=== PATIENT | female | born 1930 | race Caucasian/White ===

== ENCOUNTER 2016-12-01 09:48 | Inpatient (IN) | payer MEDICARE, OTHER ==
[~2016-12-01] VITALS: Ht 160 cm; Wt 78.0 kg
[2016-12-01] MEDS ORDERED: ATOR10TA PO (10:24)
[2016-12-01] MEDS ORDERED: ASPI81TA2 PO (10:24)
[2016-12-01] MEDS ORDERED: CALC500T13 PO (10:24)
[2016-12-01] MEDS ORDERED: TRIA1CAP2 PO (10:24)
[2016-12-01] MEDS ORDERED: LEVO50TA8 PO (10:24)
[2016-12-01 10:40] LABS: BASOPHILS # (AUTO) 0.1 /CMM (0.0-0.2); BASOPHILS % (AUTO) 1.8 % (0.0-2.0); DIFF TOTAL % 100 %; EOSINOPHILS # (AUTO) 0.1 /CMM (0.0-0.7); EOSINOPHILS % (AUTO) 1.5 % (0.0-6.0); HEMATOCRIT 41 % (33-45); HEMOGLOBIN 13.8 g/dL (11.5-14.8); LYMPHOCYTES # (AUTO) 1.9 /CMM (0.8-4.8); LYMPHOCYTES % (AUTO) 36.3 % (20.0-44.0); MEAN CORPUSCULAR HEMOGLOBIN 30 PG (26.0-33.0); MEAN CORPUSCULAR HGB CONC 33 g/dl (31.0-36.0); MEAN CORPUSCULAR VOLUME 89 fL (82-100); MONOCYTES # (AUTO) 0.5 /CMM (0.1-1.30); MONOCYTES % (AUTO) 10.1 % (2.0-12.0); NEUTROPHILS # (AUTO) 2.6 /CMM (1.8-8.9); NEUTROPHILS % (AUTO) 50.3 % (43.0-81.0); PLATELET COUNT (AUTO) 227 /CMM (150-450); RED BLOOD CELL COUNT(AUTO) 4.65 MIL/uL (4.0-5.2); WHITE BLOOD COUNT (AUTO) 5.2 K/uL (4.3-11.0)
[2016-12-01 10:50] LABS: CALCIUM, SERUM 9.3 mg/dL (8.5-10.1); CREATININE 1.2 mg/dL (0.6-1.3); POTASSIUM 3.7 mmol/L (3.5-5.1)
[2016-12-01 10:55] LABS: ALBUMIN 3.6 g/dL (3.4-5.0); BILIRUBIN,DIRECT 0.1 mg/dL (0.0-0.2); BILIRUBIN,TOTAL 0.6 mg/dL (0.2-1.0); INDIRECT BILIRUBIN 0.5 mg/dL (0.0-1.1); TOTAL PROTEIN, SERUM 7.6 g/dL (6.4-8.2)
[2016-12-01 10:58] LABS: TROPONIN I 0.026 ng/mL (0.00-0.056)
[2016-12-01 11:10] LABS: KETONES,URINE Negative (NEGATIVE); LEUKOCYTE ESTERASE ,URINE Trace (NEGATIVE)
[2016-12-01 11:12] LABS: ADD UA MICROSCOPIC YES
[2016-12-01 11:13] LABS: ADD URINE CULTURE NO
[2016-12-01 12:27] LABS: THYROID STIMULATING HORMONE 0.551 uIU/mL (0.358-3.74)
[2016-12-01] MEDS ORDERED: IV NS 0.9% 1,000 ML ONE (12:44)
[2016-12-01] MEDS ORDERED: IV SET PRIMARY PUMP SET 1 EA INFUS.SET MC ONE ×2 (12:44→14:05)
[2016-12-01] MEDS: IV NS 0.9% 1,000 ML IV PRN ×3 (12:55→14:41)
[2016-12-01 13:57] VITALS: BP 124/75
[2016-12-01 14:00] VITALS: BP 124/75
[2016-12-01] MEDS ORDERED: ZOLPIDEM TARTRATE 5 MG TABLET PO PRN (14:00)
[2016-12-01] MEDS ORDERED: HYDROCODONE/APAP 5/325MG 1 EACH TABLET PO PRN (14:00)
[2016-12-01] MEDS ORDERED: MAG HYDROX/AL HYDROX/SIMETH 30 ML UDC PO PRN (14:00)
[2016-12-01] MEDS ORDERED: MAGNESIUM HYDROXIDE 30 ML UDC PO PRN (14:00)
[2016-12-01] MEDS ORDERED: Z GUARD REMEDY 2 OZ OINT TP PRN (14:00)
[2016-12-01] MEDS ORDERED: ONDANSETRON HCL/PF 4 MG/2 ML VIAL IVP PRN (14:00)
[2016-12-01] MEDS ORDERED: ACETAMINOPHEN 325 MG TABLET PO PRN (14:00)
[2016-12-01] MEDS: PANTOPRAZOLE 40 MG TABLET.DR PO SCH (14:08)
[2016-12-01] MEDS: AMLODIPINE BESYLATE 10 MG TABLET PO SCH (14:09)
[2016-12-01 16:00] VITALS: BP 113/68
[2016-12-01 16:54] LABS: IRON, SERUM 132 ug/dl (50-175); PERCENT SATURATION 34 % (14-33); TOTAL IRON BINDING CAPACITY 387 ug/dl (250-450)
[2016-12-01] MEDS: CALCIUM CARBONATE 500 MG TAB.CHEW PO SCH (18:34)
[2016-12-01 20:00] VITALS: BP 106/55
[2016-12-01] MEDS: ATORVASTATIN 10 MG TABLET PO SCH (21:01)
[2016-12-01 22:00] VITALS: BP 106/55
[2016-12-02] VITALS (7 sets, daily range): BP systolic 100–131; BP diastolic 42–79
[2016-12-02] MEDS: IV NS 0.9% 1,000 ML IV PRN ×2 (01:47→11:14)
[2016-12-02] MEDS: PANTOPRAZOLE 40 MG TABLET.DR PO SCH (06:38)
[2016-12-02] MEDS: LEVOTHYROXINE SODIUM 50 MCG TABLET PO SCH (06:38)
[2016-12-02 06:57] LABS: BASOPHILS % (AUTO) 0.7 % (0.0-2.0); DIFF TOTAL % 100 %; EOSINOPHILS # (AUTO) 0.1 /CMM (0.0-0.7); EOSINOPHILS % (AUTO) 2.1 % (0.0-6.0); HEMATOCRIT 41 % (33-45); HEMOGLOBIN 13.4 g/dL (11.5-14.8); LYMPHOCYTES # (AUTO) 1.9 /CMM (0.8-4.8); LYMPHOCYTES % (AUTO) 36.3 % (20.0-44.0); MEAN CORPUSCULAR HEMOGLOBIN 29 PG (26.0-33.0); MEAN CORPUSCULAR HGB CONC 33 g/dl (31.0-36.0); MEAN CORPUSCULAR VOLUME 90 fL (82-100); MONOCYTES # (AUTO) 0.4 /CMM (0.1-1.30); MONOCYTES % (AUTO) 8.2 % (2.0-12.0); NEUTROPHILS # (AUTO) 2.8 /CMM (1.8-8.9); NEUTROPHILS % (AUTO) 52.7 % (43.0-81.0); PLATELET COUNT (AUTO) 239 /CMM (150-450); RED BLOOD CELL COUNT(AUTO) 4.57 MIL/uL (4.0-5.2); WHITE BLOOD COUNT (AUTO) 5.4 K/uL (4.3-11.0)
[2016-12-02 07:05] LABS: TROPONIN I 0.021 ng/mL (0.00-0.056)
[2016-12-02 07:15] LABS: URIC ACID 5.6 mg/dL (2.6-7.2)
[2016-12-02 07:17] LABS: ALBUMIN 3.3 g/dL (3.4-5.0); BILIRUBIN,TOTAL 0.6 mg/dL (0.2-1.0); CALCIUM, SERUM 8.6 mg/dL (8.5-10.1); POTASSIUM 3.6 mmol/L (3.5-5.1); TOTAL PROTEIN, SERUM 7.1 g/dL (6.4-8.2)
[2016-12-02] MEDS: AMLODIPINE BESYLATE 10 MG TABLET PO SCH (08:36)
[2016-12-02] MEDS: TRIAMTERENE/HYDROCHLOROTHIAZID (37.5/25MG) 1 UDCAP PO SCH (08:36)
[2016-12-02] MEDS: CALCIUM CARBONATE 500 MG TAB.CHEW PO SCH ×3 (08:36→17:00)
[2016-12-02] MEDS: ASPIRIN 81 MG TAB.CHEW PO SCH (08:36)
[2016-12-02 10:11] LABS: ERYTHROCYTE SEDIMENTATION RATE 21 MM/HR (0-30)
[2016-12-02] MEDS: ATORVASTATIN 10 MG TABLET PO SCH (22:30)
[2016-12-03] VITALS (8 sets, daily range): BP systolic 96–137; BP diastolic 52–77
[2016-12-03] MEDS: LEVOTHYROXINE SODIUM 50 MCG TABLET PO SCH (07:30)
[2016-12-03] MEDS: PANTOPRAZOLE 40 MG TABLET.DR PO SCH (07:30)
[2016-12-03 07:53] LABS: BASOPHILS % (AUTO) 0.6 % (0.0-2.0); DIFF TOTAL % 100 %; EOSINOPHILS # (AUTO) 0.1 /CMM (0.0-0.7); EOSINOPHILS % (AUTO) 1.5 % (0.0-6.0); HEMATOCRIT 39 % (33-45); LYMPHOCYTES # (AUTO) 1.7 /CMM (0.8-4.8); LYMPHOCYTES % (AUTO) 30.3 % (20.0-44.0); MEAN CORPUSCULAR HEMOGLOBIN 30 PG (26.0-33.0); MEAN CORPUSCULAR HGB CONC 33 g/dl (31.0-36.0); MEAN CORPUSCULAR VOLUME 89 fL (82-100); MONOCYTES # (AUTO) 0.4 /CMM (0.1-1.30); MONOCYTES % (AUTO) 7.3 % (2.0-12.0); NEUTROPHILS # (AUTO) 3.4 /CMM (1.8-8.9); NEUTROPHILS % (AUTO) 60.3 % (43.0-81.0); PLATELET COUNT (AUTO) 223 /CMM (150-450); RED BLOOD CELL COUNT(AUTO) 4.36 MIL/uL (4.0-5.2); WHITE BLOOD COUNT (AUTO) 5.7 K/uL (4.3-11.0)
[2016-12-03] MEDS: ASPIRIN 81 MG TAB.CHEW PO SCH (09:00)
[2016-12-03] MEDS: CALCIUM CARBONATE 500 MG TAB.CHEW PO SCH ×3 (09:00→17:33)
[2016-12-03] MEDS: TRIAMTERENE/HYDROCHLOROTHIAZID (37.5/25MG) 1 UDCAP PO SCH (09:00)
[2016-12-03] MEDS: AMLODIPINE BESYLATE 10 MG TABLET PO SCH (09:00)
[2016-12-03 09:10] LABS: ALBUMIN 3.2 g/dL (3.4-5.0); BILIRUBIN,TOTAL 0.5 mg/dL (0.2-1.0); CALCIUM, SERUM 8.7 mg/dL (8.5-10.1); CREATININE 1.1 mg/dL (0.6-1.3); PHOSPHORUS 2.7 mg/dL (2.5-4.9); POTASSIUM 3.3 mmol/L (3.5-5.1); TOTAL PROTEIN, SERUM 6.9 g/dL (6.4-8.2)
[2016-12-03] MEDS ORDERED: FENTANYL PF 100MCG/2ML AMPUL ONE (11:46)
[2016-12-03] MEDS ORDERED: LIDOCAINE HCL/PF 1% 30 ML SDV ONE (12:06)
[2016-12-03] MEDS ORDERED: IOHEXOL 50 ML IV ONE (12:06)
[2016-12-03] MEDS ORDERED: METOCLOPRAMIDE HCL 10 MG/2 ML VIAL ONE (13:24)
[2016-12-03] MEDS ORDERED: ERGOCALCIFEROL (VITAMIN D 2) 50,000 UNIT CAPSULE PO SCH (13:30)
[2016-12-03] MEDS ORDERED: POTASSIUM CHLORIDE 20 MEQ TAB.PRT.SR PO SCH (18:00)
[2016-12-03] MEDS: ATORVASTATIN 10 MG TABLET PO SCH (21:34)
[2016-12-04] VITALS: BP 111/45
[2016-12-04] MEDS: IV NS 0.9% 1,000 ML IV PRN (02:33)
[2016-12-04 07:55] LABS: CALCIUM, SERUM 8.4 mg/dL (8.5-10.1); POTASSIUM 3.5 mmol/L (3.5-5.1)
[2016-12-04 08:00] VITALS: BP 104/55
[2016-12-04] MEDS: PANTOPRAZOLE 40 MG TABLET.DR PO SCH (08:32)
[2016-12-04] MEDS: ASPIRIN 81 MG TAB.CHEW PO SCH (08:32)
[2016-12-04] MEDS: LEVOTHYROXINE SODIUM 50 MCG TABLET PO SCH (08:32)
[2016-12-04] MEDS: CALCIUM CARBONATE 500 MG TAB.CHEW PO SCH (08:32)
[2016-12-04] MEDS: AMLODIPINE BESYLATE 10 MG TABLET PO SCH (08:32)
[2016-12-04 08:33] VITALS: BP 104/55
[2016-12-04] MEDS: TRIAMTERENE/HYDROCHLOROTHIAZID (37.5/25MG) 1 UDCAP PO SCH (08:33)
== END 2016-12-04 12:54 | disposition home or self-care (01) | DRG 243 ==
LOC: ER 09:50 → TELE 13:03 → MED 12-04 10:53
PROVIDERS: ADMIT Internal Medicine; ATTEND Internal Medicine
PROC: 02HK3JZ Insertion of Pacemaker Lead into Right Ventricle, Percutaneous Approach (ICD-10-PCS; 2016-12-03)
PROC: 05H633Z Insertion of Infusion Device into Left Subclavian Vein, Percutaneous Approach (ICD-10-PCS; 2016-12-03)
PROC: 0JH605Z Insertion of Pacemaker, Single Chamber Rate Responsive into Chest Subcutaneous Tissue and Fascia, Open Approach (ICD-10-PCS; principal; 2016-12-03 12:45)
DX: I49.5 Sick sinus syndrome (principal); I44.2 Atrioventricular block, complete; I48.2 Chronic atrial fibrillation; G89.29 Other chronic pain; E03.9 Hypothyroidism, unspecified; K21.9 Gastro-esophageal reflux disease without esophagitis; M19.90 Unspecified osteoarthritis, unspecified site; Z96.643 Presence of artificial hip joint, bilateral; I10 Essential (primary) hypertension; D64.9 Anemia, unspecified; E55.9 Vitamin D deficiency, unspecified
CPT/HCPCS: 36415; 71010-TC; 80048-TC; 80053-TC; 80061-TC; 80076-TC; 81000-TC; 82272-TC; 82306; 82728-TC; 82746; 83540-TC; 83735-TC; 84100-TC; 84439-TC; 84443-TC; 84484-TC; 84550-TC; 85025-TC; 85652-TC; 87081-TC; 87086-TC; 93307-TC; A4606; J2765; J3010; J3490; J7030; Q9967; Z7610

== ENCOUNTER 2017-03-25 00:39 | Inpatient (IN) | payer MEDICARE, OTHER ==
[~2017-03-25] VITALS: Ht 157.5 cm; Wt 79.4 kg
[~2017-03-25 00:39] MED LIST: ATOR10TA PO; CALC500T13 PO; LEVO50TA8 PO; TRIA1CAP2 PO
[2017-03-25] MEDS ORDERED: METOPROLOL TARTRATE INJ 5 MG/5 ML AMPUL ONE (00:58)
[2017-03-25] MEDS ORDERED: AMIODARONE 150 MG/3 ML VIAL IV ONE ×2 (00:58→01:02)
[2017-03-25] MEDS ORDERED: IV D5W 500 ML IV ONE (00:59)
[2017-03-25] MEDS ORDERED: IV D5W 100 ML IV ONE (00:59)
[2017-03-25] MEDS ORDERED: IV SET PRIMARY PUMP SET 1 EA INFUS.SET MC ONE (00:59)
[2017-03-25] MEDS ORDERED: AMIODARONE 900 MG in IV D5W 500 ML IV ONE (01:00)
[2017-03-25] MEDS ORDERED: AMIODARONE 150 MG in IV D5W 100 ML IV ONE (01:00)
[2017-03-25] MEDS ORDERED: METOPROLOL TARTRATE INJ 5 MG/5 ML AMPUL IV ONE (01:00)
[2017-03-25 01:13] LABS: BASOPHILS # (AUTO) 0.1 /CMM (0.0-0.2); BASOPHILS % (AUTO) 1.2 % (0.0-2.0); EOSINOPHILS # (AUTO) 0.1 /CMM (0.0-0.7); EOSINOPHILS % (AUTO) 1.6 % (0.0-6.0); HEMATOCRIT 42 % (33-45); HEMOGLOBIN 13.8 g/dL (11.5-14.8); LYMPHOCYTES # (AUTO) 2.7 /CMM (0.8-4.8); LYMPHOCYTES % (AUTO) 31.2 % (20.0-44.0); MEAN CORPUSCULAR HEMOGLOBIN 29 PG (26.0-33.0); MEAN CORPUSCULAR HGB CONC 33 g/dl (31.0-36.0); MEAN CORPUSCULAR VOLUME 89 fL (82-100); MONOCYTES # (AUTO) 0.7 /CMM (0.1-1.30); MONOCYTES % (AUTO) 8.6 % (2.0-12.0); NEUTROPHILS % (AUTO) 57.4 % (43.0-81.0); PLATELET COUNT (AUTO) 253 /CMM (150-450); RDW COEFFICIENT OF VARIATION 13.7 (11.5-15.0); RED BLOOD CELL COUNT(AUTO) 4.73 MIL/uL (4.0-5.2); WHITE BLOOD COUNT (AUTO) 8.6 K/uL (4.3-11.0)
[2017-03-25 01:24] LABS: CALCIUM, SERUM 8.7 mg/dL (8.5-10.1); CREATININE 1.1 mg/dL (0.6-1.3); POTASSIUM 3.4 mmol/L (3.5-5.1)
[2017-03-25 01:32] LABS: TROPONIN I 0.037 ng/mL (0.00-0.056)
[2017-03-25 01:36] LABS: ALBUMIN 3.7 g/dL (3.4-5.0); BILIRUBIN,DIRECT 0.1 mg/dL (0.0-0.2); BILIRUBIN,TOTAL 0.2 mg/dL (0.2-1.0); TOTAL PROTEIN, SERUM 7.8 g/dL (6.4-8.2)
--- NOTE | 2017-03-25 01:37 | NUR ---
DR. THOMPSON IS AT THE BEDSIDE RE-EVALUATING THE PT.
--- NOTE | 2017-03-25 01:40 | NUR ---
AMIODARONE DRIP STARTED.
[2017-03-25 01:41] LABS: D-DIMER 0.4 mg/L(FEU (0.17-0.50); PROTHROMBIN TIME 10.7 SECS (9.5-12.7)
--- NOTE | 2017-03-25 02:24 | NUR ---
REPORT GIVEN TO ALLEY PANDEY
[2017-03-25 02:35] VITALS: BP 145/85
--- NOTE | 2017-03-25 02:35 | NUR ---
JAYSON RN INITIAL NOTE RECEIVED PT VIA CHANTEL FROM ER. PT A/O X3 AND ABLE TO MAKE NEEDS KNOWN. COUSIN AT BEDSIDE. HEART AND LUNG SOUNDS AUSCULTATED. ON 2L OF O2 VIA NC AND SATING WELL. IV RAC #18 PATENT, CLEAN AND FLUSHING WELL. ON AMIODARONE DRIP AND WELL TOLERATED. BED IN LOWEST POSITION AND BRAKES ON. CALL LIGHT WITHIN EASY REACH AT ALL TIMES. WILL CONTINUE TO MONITOR.
[2017-03-25 04:00] VITALS: BP 129/67
--- NOTE | 2017-03-25 07:00 | NUR ---
JAYSON RN CLOSING NOTE PT REMAINED STABLE DURING SHIFT. NO ACUTE DISTRESS NOTED AT THIS TIME. FLUIDS WELL TOLERATED. CALL LIGHT WITHIN REACH. WILL ENDORSE TO NEXT SHIFT FOR JOHANA.
[2017-03-25 08:00] VITALS: BP 124/70
[2017-03-25] MEDS ORDERED: IV NS 0.9% 1,000 ML IV PRN (10:06)
[2017-03-25] MEDS ORDERED: APIX2.5T PO (10:12)
[2017-03-25] MEDS ORDERED: APIXABAN 5 MG TABLET PO SCH ×2 (10:30)
[2017-03-25] MEDS ORDERED: CALCIUM CARBONATE 500 MG TAB.CHEW PO PRN (10:30)
[2017-03-25 10:49] LABS: THYROID STIMULATING HORMONE 3.866 uIU/mL (0.358-3.74)
[2017-03-25 12:00] VITALS: BP 98/59
[2017-03-25] MEDS: LEVOTHYROXINE SODIUM 50 MCG TABLET PO SCH (12:24)
[2017-03-25] MEDS: POTASSIUM CHLORIDE 20 MEQ TAB.PRT.SR PO SCH ×3 (12:24→14:17)
[2017-03-25] MEDS: METOPROLOL TARTRATE 50 MG TABLET PO SCH ×2 (12:24→21:15)
[2017-03-25] MEDS: DRONEDARONE HYDROCHLORIDE 400 MG TABLET PO SCH ×2 (12:37→16:43)
[2017-03-25] MEDS: IV NS 0.9% 1,000 ML IV PRN ×2 (12:37→21:17)
--- NOTE | 2017-03-25 12:53 | NUR ---
JAYSON Report given to ALLEY Ortiz for continuity of care. vitals remain stable. patient scheduled for cardioversion in am. NPO post MN, IVF started. Amio DC'd per Cardio. Patient in agreement with plan
[2017-03-25 16:00] VITALS: BP_SYST 111; BP_DIAS 56; BP_DIAS 66
[2017-03-25] MEDS: APIXABAN 2.5 MG TABLET PO SCH (16:43)
--- NOTE | 2017-03-25 19:01 | NUR ---
RN CLOSING NOTE PT RESTING IN BED COMFORTABLY. ALL MD ORDERS CARRIED OUT. PT KEPT CLEAN AND DRY. SAFETY PRECAUTIONS IN PLACE AT ALL TIMES. WILL GIVE REPORT TO PM RN FOR JOHANA.
--- NOTE | 2017-03-25 19:30 | NUR ---
LUNCH COOK INITIAL NOTES RECEIVED PATIENT AWAKE, A/OX4, ABLE TO MAKE NEEDS KNOWN. NO RESPIRATORY DISTRESS NOTED, ON ROOM AIR. DENIES PAIN OR DISCOMFORT. SKIN WARM AND DRY TO TOUCH. AMBULATORY, STEADY GAIT. ON TELE MONITOR AFIB CONTROLLED. IVF RUNNING. SIDE RAILS UP AND LOCKED. BED KEPT AT LOWEST POSITION. CALL LIGHT KEPT WITHIN EASY REACH. WILL CONTINUE TO MONITOR.
[2017-03-25 20:00] VITALS: BP 116/71
[2017-03-25] MEDS ORDERED: ATORVASTATIN 10 MG TABLET PO SCH (22:00)
[2017-03-26] VITALS: BP 124/68
--- NOTE | 2017-03-26 00:06 | NUR ---
NEUROSURGEON NOTES INFORMED ROOFING SUPERVISOR MEDEIROS REGARDING PATIENT FEELING ANXIOUS ABOUT MORNING PROCEDURE AND WOULD LIKE MEDICATION TO HELP HER SLEEP. WITH ORDERS FOR ATIVAN 0.5MG X 1 DOSE. NOTED, WILL CONTINUE TO MONITOR.
[2017-03-26] MEDS ORDERED: LORAZEPAM 0.5 MG TABLET ONE (00:09)
[2017-03-26] MEDS ORDERED: LORAZEPAM 0.5 MG TABLET PO ONE (00:30)
[2017-03-26] MEDS ORDERED: ONDANSETRON HCL/PF 4 MG/2 ML VIAL ONE (01:02)
--- NOTE | 2017-03-26 01:05 | NUR ---
PATIENT C/O OF FEELING NAUSEOUS, INFORMED OIL PAINTER MEDEIROS WITH ORDERS FOR ZOFRAN IV 4MG ONE TIME DOSE. THEN OK TO GIVE ATIVAN. WILL CONTINUE TO MONITOR.
[2017-03-26] MEDS ORDERED: ONDANSETRON HCL/PF 4 MG/2 ML VIAL IV ONE (01:30)
[2017-03-26 04:00] VITALS: BP 113/70
[2017-03-26] MEDS: IV NS 0.9% 1,000 ML IV PRN (05:20)
--- NOTE | 2017-03-26 05:48 | NUR ---
COW TENDER NOTES CONTINUITY OF CARE ENDORSED TO ICU NURSE BARBIE. PATIENT AWAKE, STATES SHE FEELS BETTER GATHERING HER BELONGINGS.
[2017-03-26 06:00] VITALS: BP 116/73
--- NOTE | 2017-03-26 06:06 | NUR ---
PROCESS CONTROL OPERATOR CLOSING NOTES PATIENT TRANSFERRED TO ICU VIA WHEEL CHAIR IN STABLE CONDITION. NO RESPIRATORY DISTRESS NOTED. ON 2LPMO2 VIA NC. SKIN WARM AND DRY TO TOUCH. ALL BELONGINGS WITH PATIENT.
--- NOTE | 2017-03-26 06:15 | NUR ---
received pt from Tele, a/o x4, follows commands, A fib controlled, on 2L 02 sat well, lungs clear, no edema, NPO, v/s stable, no pain, pt turns and repositions by herself, pt is ready for cardioversion.
[2017-03-26 08:00] VITALS: BP 119/71
[2017-03-26 08:25] LABS: BASOPHILS % (AUTO) 0.5 % (0.0-2.0); EOSINOPHILS # (AUTO) 0.1 /CMM (0.0-0.7); EOSINOPHILS % (AUTO) 0.8 % (0.0-6.0); HEMATOCRIT 37 % (33-45); HEMOGLOBIN 11.9 g/dL (11.5-14.8); LYMPHOCYTES # (AUTO) 1.3 /CMM (0.8-4.8); LYMPHOCYTES % (AUTO) 18.9 % (20.0-44.0); MEAN CORPUSCULAR HEMOGLOBIN 29 PG (26.0-33.0); MEAN CORPUSCULAR HGB CONC 33 g/dl (31.0-36.0); MEAN CORPUSCULAR VOLUME 90 fL (82-100); MONOCYTES # (AUTO) 0.4 /CMM (0.1-1.30); MONOCYTES % (AUTO) 6.6 % (2.0-12.0); NEUTROPHILS # (AUTO) 4.9 /CMM (1.8-8.9); NEUTROPHILS % (AUTO) 73.2 % (43.0-81.0); PLATELET COUNT (AUTO) 188 /CMM (150-450); RDW COEFFICIENT OF VARIATION 13.7 (11.5-15.0); RED BLOOD CELL COUNT(AUTO) 4.06 MIL/uL (4.0-5.2); WHITE BLOOD COUNT (AUTO) 6.6 K/uL (4.3-11.0)
--- NOTE | 2017-03-26 08:30 | NUR ---
EGG BREAKING MACHINE OPERATOR NOTE RECITED PATIENT FROM ICU ,ALERT ORIENTED S\P CARDIOVERSION .PLACED ON TELE MONITOR WITH V PACING HR [address] DONYA TATUM TO GIVE MULTAQ NO SOB NOTED RT HAND HL INTACT ,NON IVF ORDERED, WILL L CONT TO MONITOR CLOSELY ,HAVING BREAKFAST ABLE TO EAT SELF BED IN LOWEST AND LOOKED POSITION ,PLAN OF CARE DISCUSSED WITH PATIENT ,CALL LIGHT WITHIN REACH
[2017-03-26 08:47] LABS: ALBUMIN 2.9 g/dL (3.4-5.0); BILIRUBIN,TOTAL 0.6 mg/dL (0.2-1.0); CALCIUM, SERUM 8.2 mg/dL (8.5-10.1); CREATININE 1.2 mg/dL (0.6-1.3); MAGNESIUM 1.9 mg/dL (1.8-2.4); PHOSPHORUS 3.4 mg/dL (2.5-4.9); POTASSIUM 4.3 mmol/L (3.5-5.1); TOTAL PROTEIN, SERUM 6.1 g/dL (6.4-8.2)
[2017-03-26] MEDS: METOPROLOL TARTRATE 50 MG TABLET PO SCH (09:41)
[2017-03-26] MEDS: LEVOTHYROXINE SODIUM 50 MCG TABLET PO SCH (09:41)
[2017-03-26] MEDS: DRONEDARONE HYDROCHLORIDE 400 MG TABLET PO SCH (09:42)
[2017-03-26] MEDS: APIXABAN 2.5 MG TABLET PO SCH (09:57)
--- NOTE | 2017-03-26 11:20 | NUR ---
PASSENGER LOCOMOTIVE ENGINEER NOTE PER DR DANELLE TATUM TO DISCHARGE, SPOKE WITH DR CLARITA TATUM TO GO HOME , PX GIVEN AND FAXED TO [facility]
[2017-03-26 12:00] VITALS: BP 107/60
--- NOTE | 2017-03-26 12:38 | NUR ---
CHIEF LIBRARIAN WORK WITH BLIND NOTE CALLED T O PT X3 STILL NOT COME YET
--- NOTE | 2017-03-26 13:38 | NUR ---
DESKTOP MANAGER NOTE PT AT BEDSIDE MOHIT AYN,CALLED TO CHAIM FRIEND LEFT A MASSAGE TO SENIOR QUALITY ASSURANCE ENGINEER PATIENT
--- NOTE | 2017-03-26 15:00 | NUR ---
TECHNICIAN ANATOMIC PATHOLOGY NOTE FRIEND VIVIANE CAME, TO OCCUPATIONAL THERAPY PROFESSOR PATENT HOME,RX GIVEN,UNDERSTOOD HL REMOVED TELE REMOVED,INSTRUCTED TO FOLLOW UP WITH DR NAQVI NEXT WEEK AND PRIMARY CARE DOCTOR ,ALSO INSTRUCTED HOW TO TAKE NEW MEDICATION AND POSSIBLE SIDE EFFECTS,TAKEN TO LOBBY ON W\C WITH STABLE CONDITION
--- NOTE | 2017-03-26 15:44 | NUR ---
telephone instrument supervisor note called to giovanni hamilton to check how she doing and how she understands about new px Lopressor and Multaq, remained her to make an appointment with dr cleaning for further eval and new orders
--- NOTE | 2017-03-26 17:00 | NUR ---
telegraphic typewriter operator note called perez raines explained about new medication that patient need to take Lopressor and Multaq and follow up with dr cleaning next week for further eval and any new orders , stated will call tomorrow to see giovanni hamilton and will call her today
== END 2017-03-26 15:16 | disposition home or self-care (01) | DRG 309 ==
LOC: ER 00:40 → TELE-TD 02:24 → TELE1 10:48 → ICU 03-26 05:56 → TELE1 03-26 09:03
PROVIDERS: ADMIT Internal Medicine Interventional Cardiology; ATTEND Internal Medicine
DX: I48.91 Unspecified atrial fibrillation (principal); D68.59 Other primary thrombophilia; E03.9 Hypothyroidism, unspecified; I10 Essential (primary) hypertension; M19.90 Unspecified osteoarthritis, unspecified site; Z96.643 Presence of artificial hip joint, bilateral; G89.29 Other chronic pain; I48.2 Chronic atrial fibrillation; I11.9 Hypertensive heart disease without heart failure; Z95.0 Presence of cardiac pacemaker; M54.9 Dorsalgia, unspecified
CPT/HCPCS: 36415; 71010-TC; 80048-TC; 80053-TC; 80076-TC; 82306; 82728-TC; 83540-TC; 83735-TC; 83880; 84100-TC; 84439-TC; 84443-TC; 84484-TC; 85025-TC; 85378-TC; 85730-TC; 87081-TC; 97001-TC; A4606; J0282; J2405; J2704; J3490; J7030; J7060; Z7610

== ENCOUNTER 2017-04-07 13:56 | Outpatient (CLI) | payer MEDICARE, OTHER ==
[~2017-04-07 13:56] MED LIST changes: +APIX2.5T PO
[2017-04-07 15:27] LABS: APPEARANCE,URINE CLEAR (CLEAR); BILIRUBIN,URINE NEGATIVE (NEGATIVE); BLOOD, URINE TRACE-INTA Ery/uL (NEGATIVE); COLOR,URINE YELLOW (YELLOW); KETONES,URINE NEGATIVE (NEGATIVE); LEUKOCYTE ESTERASE ,URINE NEGATIVE (NEGATIVE); NITRITE, URINE NEGATIVE (NEGATIVE); PH,URINE 6.5 (5.0-8.0); PROTEIN,URINE NEGATIVE (NEGATIVE); UGLUCOSE NEGATIVE (NEGATIVE); UROBILINOGEN,URINE 0.2 EU/dL (0.2)
[2017-04-07 15:42] LABS: ALBUMIN 3.5 g/dL (3.4-5.0); BILIRUBIN,TOTAL 0.5 mg/dL (0.2-1.0); CALCIUM, SERUM 8.8 mg/dL (8.5-10.1); CREATININE 1.2 mg/dL (0.6-1.3); POTASSIUM 3.6 mmol/L (3.5-5.1); TOTAL PROTEIN, SERUM 7.3 g/dL (6.4-8.2)
[2017-04-07 15:52] LABS: ADD URINE CULTURE NO; BACTERIA,URINE None seen /HPF (None Seen); RBC,URINE 0-2 /HPF (0-2); SQUAMOUS EPITHELIAL CELL,UR Rare /HPF (None Seen); WBC,URINE 0-2 /HPF (0-3)
== END 2017-04-07 23:59 | disposition home or self-care (01) ==
LOC: LAB 13:56
PROVIDERS: ATTEND Internal Medicine Interventional Cardiology
DX: I50.9 Heart failure, unspecified (principal); I51.7 Cardiomegaly; Z95.0 Presence of cardiac pacemaker
CPT/HCPCS: 36415; 71020-TC; 80053-TC; 81000-TC; 87086-TC